=== PATIENT | female | born 1940 ===

== ENCOUNTER 2017-05-20 08:07 | Day surgery (SDC) | payer MEDICARE ==
[2017-05-20 09:07] VITALS: BMI 19.0
[2017-05-20] MEDS ORDERED: Propofol 10 mg/ml Inj (20 ML) ONE (10:29)
[2017-05-20] MEDS ORDERED: Lactated Ringer's 500 ML IV ONE (10:30)
[2017-05-20] MEDS ORDERED: Lidocaine Hydrochloride 5 ML INJ ONE (10:32)
[2017-05-20 10:47] VITALS: O2SAT 100
[2017-05-20] MEDS ORDERED: Lactated Ringer's 500 ML IV SCH (11:00)
[2017-05-20 11:54] VITALS: RESP 12
[2017-05-20 13:41] VITALS: BP 150/69; PULSE 67; TEMP 98.2
== END 2017-05-20 12:45 | disposition home or self-care (01) ==
LOC: C.ENDO 08:07
PROVIDERS: ATTEND Internal Medicine Gastroenterology
DX: Z12.11 Encounter for screening for malignant neoplasm of colon (principal); K64.8 Other hemorrhoids
CPT/HCPCS: 45380; 45385; 82948; 88305; J2704; J7120

== ENCOUNTER 2017-11-05 07:26 | Day surgery (SDC) | payer MEDICARE ==
[2017-11-05 08:07] VITALS: BMI 17.9
[2017-11-05] MEDS ORDERED: Propofol 10 mg/ml Inj (20 ML) ONE (08:49)
[2017-11-05] MEDS ORDERED: Lactated Ringer's 1,000 ML IV ONE (08:50)
[2017-11-05 08:53] VITALS: O2SAT 100
[2017-11-05] MEDS ORDERED: Etomidate 20 mg/10ml Inj IV ONE (09:11)
[2017-11-05 09:23] VITALS: TEMP 97.4
[2017-11-05 09:32] VITALS: RESP 12
[2017-11-05 10:01] VITALS: BP 147/60; PULSE 55
== END 2017-11-05 10:00 | disposition home or self-care (01) ==
LOC: C.ENDO 07:26
PROVIDERS: ATTEND Internal Medicine Gastroenterology
DX: K21.0 Gastro-esophageal reflux disease with esophagitis (principal); Z21 Asymptomatic human immunodeficiency virus [HIV] infection status; Z79.899 Other long term (current) drug therapy; I10 Essential (primary) hypertension; E10.9 Type 1 diabetes mellitus without complications; Z86.010 Personal history of colon polyps; B96.81 Helicobacter pylori [H. pylori] as the cause of diseases classified elsewhere; K29.70 Gastritis, unspecified, without bleeding

== ENCOUNTER 2018-11-17 09:18 | Outpatient (CLI) | payer MEDICARE | END 2018-11-17 09:19 | disposition home or self-care (01) | LOC: C.LAB 09:18 | DX: Z00.00 Encounter for general adult medical examination without abnormal findings (principal) ==